=== PATIENT | female | born 1955 | race Caucasian/White ===

== ENCOUNTER 2019-02-01 07:29 | Emergency (ER) | payer BC ==
[2019-02-01] MEDS: Sodium Chloride 0.9% 1,000 ML IV ONE ×2 (07:45→08:30)
[2019-02-01] MEDS: Sodium Chloride 0.9% 10 ML Syringe FLUSH PRN (07:45)
[2019-02-01 08:15] LABS: ANION GAP 13.7 mmol/L (5-15); CHLORIDE,CL 106 mmol/L (98-115); SODIUM,NA 140 mmol/L (136-145)
--- NOTE | 2019-02-01 08:29 | EDM.PDOC ---
ED HPI GENERAL MEDICAL PROBLEM - General Chief Complaint: General Stated Complaint: FEELS LIKE SHE IS FAINTING/HEADACHE Time Seen by Provider: 02/01/19 07:45 Source of Information: Reports: Patient, Family (), Significant Other History Limitations: Reports: No Limitations - History of Present Illness INITIAL COMMENTS - FREE TEXT/NARRATIVE: Patient woke up this am at 0530 to go to the bathroom, once she sat up to walk, she became dizzy and felt like she was going to pass out, like the room was darkening, she was able to crawl to the bathroom to void. She notes going back to bed, and with movement of sitting up from lying flat caused her to have these near syncope like symptoms. She notes having a sudden "annoying" headache in her frontal region, no radiation, vague about describing it, but it is not her worse h/a she has ever, and was not associated with any focal neurological deficits. In addition, she notes working outside the past two days in the heat doing strenuous activities (planting trees) in the sun while not drinking enough water. 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: Other (see below) (drank water) Headache Pain Score (Numeric/FACES): 3 - Related Data Allergies Allergy/AdvReac Type Severity Reaction Status Date / Time erythromycin base Allergy Shortness Verified 02/01/19 07:37 [From [facility] of Breath latex Allergy Cannot Verified 02/01/19 07:37 Remember Sulfa (Sulfonamide Allergy Cannot Verified 02/01/19 07:37 Antibiotics) Remember Home Meds: Home Meds Non-Formulary Medication [NF Drug] 1 applic VAG ASDIRECTED 02/01/19 [History] Past Medical History - Past Surgical History Female Surgical History: Reports: Hysterectomy Social & Family History - Family History Neurological: Reports: Other (See Below) (father had stroke) - Tobacco Use Smoking Status *Q: Never Smoker - Recreational Drug Use Recreational Drug Use: No ED ROS GENERAL - Review of Systems Review Of Systems: See Below Constitutional: Reports: Malaise, Fatigue HEENT: Reports: No Symptoms Respiratory: Reports: No Symptoms Cardiovascular: Reports: Lightheadedness Endocrine: Reports: Fatigue GI/Abdominal: Reports: No Symptoms, Nausea, Other (not diarrhea, but has had some loose stools the past 2 days.) : Reports: No Symptoms Musculoskeletal: Reports: Leg Pain, Other (bilateral leg cramps intermitten) Skin: Reports: Wound (right lower leg abrasion with scab from outside soil and sharp metal edge one week ago. ) Neurological: Reports: Headache Psychiatric: Reports: Anxiety (hx of being anxious at times) Hematologic/Lymphatic: Reports: No Symptoms ED EXAM, GENERAL - Physical Exam Exam: See Below Exam Limited By: No Limitations General Appearance: Alert, No Apparent Distress Eye Exam: Bilateral Eye: Nystagmus (unilateral horizontal nystagmus that occurs when she changes position rapidly, resolves at rest, there is no vertical or rotatory nygstagmus ) Ears: Normal External Exam, Normal Canal, Hearing Grossly Normal, Normal TMs Ear Exam: Bilateral Ear: TM normal Nose: Normal Inspection, Normal Mucosa Throat/Mouth: Normal Inspection, Normal Lips, Normal Gums, Normal Oropharynx, Other (moist mucus membranes) Head: Atraumatic, Normocephalic Neck: Normal Inspection, Supple, Full Range of Motion Respiratory/Chest: No Respiratory Distress, Lungs Clear, Normal Breath Sounds, No Accessory Muscle Use Cardiovascular: Normal Peripheral Pulses, Regular Rate, Rhythm, No Edema, No Gallop, No JVD, No Murmur, No Rub Peripheral Pulses: 2+: Radial (L), Radial (R), Posterior Tibial (L), Posterior Tibial (R), Dorsalis Pedis (L), Dorsalis Pedis (R) GI/Abdominal: Normal Bowel Sounds, Soft, Non-Tender, No Distention (Female) Exam: Normal External Exam, Deferred Back Exam: Normal Inspection, Full Range of Motion Extremities: Normal Inspection, Normal Range of Motion, Non-Tender, No Pedal Edema, Normal Capillary Refill Neurological: Alert, Oriented, CN II-XII Intact, Normal Cognition, Normal Gait, Normal Reflexes, No Motor/Sensory Deficits, Other (rapid finger to nose motion and rapid repetiive motions in tact, no gait unsteady. ) Psychiatric: Normal Affect, Normal Mood Skin Exam: Warm, Dry, Intact Lymphatic: No Adenopathy EKG INTERPRETATION EKG Date: 02/01/19 Time: 08:05 Rhythm: NSR Rate (Beats/Min): 57 Porter: Normal P-Wave: Present QRS: Normal ST-T: Normal QT: Normal Course - Vital Signs Last Recorded V/S: Last Vital Signs Temp 97.6 F 02/01/19 07:52 Pulse 58 L 02/01/19 07:52 Resp 10 L 02/01/19 07:52 BP 136/50 L 02/01/19 11:40 Pulse Ox 96 02/01/19 07:52 Orthostatic Blood Pressure [ 141/53 Standing] Orthostatic Blood Pressure [ 142/76 Sitting] Orthostatic Blood Pressure [ 141/62 Supine] - Orders/Labs/Meds Labs: Laboratory Tests 02/01/19 02/01/19 02/01/19 Range/Units 07:40 07:45 07:45 WBC 7.50 (5.00-10.00) 10^3/uL RBC 4.54 (3.80-5.50) 10^6/uL Hgb 13.7 (12.0-16.0) g/dL Hct 40.4 (37.0-47.0) % MCV 89.0 (82.0-92.0) fL MCH 30.2 (27.0-31.0) pg MCHC 33.9 (32.0-36.0) g/dL RDW 13.5 (11.5-14.5) % Plt Count 258 (150-400) 10^3/uL MPV 9.3 (7.4-10.4) fL Immature Gran % (Auto) 0.3 (0.0-5.0) % Neut % (Auto) 56.3 (50.0-70.0) % Lymph % (Auto) 28.0 (20.0-40.0) % Centre % (Auto) 7.6 (2.0-8.0) % Eos % (Auto) 7.3 H (1.0-3.0) % Baso % (Auto) 0.5 (0.0-1.0) % Immature Gran # (Auto) 0.02 (0.00-0.50) 10^3/uL Neut # (Auto) 4.22 (2.50-7.00) 10^3/uL Lymph # (Auto) 2.10 (1.00-4.00) 10^3/uL Centre # (Auto) 0.57 (0.10-0.80) 10^3/uL Eos # (Auto) 0.55 H (0.10-0.30) 10^3/uL Baso # (Auto) 0.04 (0.00-0.10) 10^3/uL Sodium 140 (136-145) mmol/L Potassium 4.0 (3.3-5.3) mmol/L Chloride 106 (98-115) mmol/L Carbon Dioxide 24.3 (21.0-32.0) mmol/L Anion Gap 13.7 (5-15) mmol/L BUN 15 (6-25) mg/dL Creatinine 0.89 (0.51-1.17) mg/dL Est Cr Clr Drug Dosing 62.14 mL/min Estimated GFR (MDRD) > 60 mL/min Glucose 102 H (75 - 99) mg/dL Calcium 8.7 (8.7-10.3) mg/dL Creatine Kinase (26-276) U/L CK-MB (CK-2) (0.00-4.30) ng/mL Troponin I (0.00-0.070) ng/mL Ur Specific [place] <= 1.005 (1.005-1.030) 02/01/19 02/01/19 Range/Units 07:45 07:45 WBC (5.00-10.00) 10^3/uL RBC (3.80-5.50) 10^6/uL Hgb (12.0-16.0) g/dL Hct (37.0-47.0) % MCV (82.0-92.0) fL MCH (27.0-31.0) pg MCHC (32.0-36.0) g/dL RDW (11.5-14.5) % Plt Count (150-400) 10^3/uL MPV (7.4-10.4) fL Immature Gran % (Auto) (0.0-5.0) % Neut % (Auto) (50.0-70.0) % Lymph % (Auto) (20.0-40.0) % Centre % (Auto) (2.0-8.0) % Eos % (Auto) (1.0-3.0) % Baso % (Auto) (0.0-1.0) % Immature Gran # (Auto) (0.00-0.50) 10^3/uL Neut # (Auto) (2.50-7.00) 10^3/uL Lymph # (Auto) (1.00-4.00) 10^3/uL Centre # (Auto) (0.10-0.80) 10^3/uL Eos # (Auto) (0.10-0.30) 10^3/uL Baso # (Auto) (0.00-0.10) 10^3/uL Sodium (136-145) mmol/L Potassium (3.3-5.3) mmol/L Chloride (98-115) mmol/L Carbon Dioxide (21.0-32.0) mmol/L Anion Gap (5-15) mmol/L BUN (6-25) mg/dL Creatinine (0.51-1.17) mg/dL Est Cr Clr Drug Dosing mL/min Estimated GFR (MDRD) mL/min Glucose (75 - 99) mg/dL Calcium (8.7-10.3) mg/dL Creatine Kinase 176 (26-276) U/L CK-MB (CK-2) 1.20 (0.00-4.30) ng/mL Troponin I < 0.04 (0.00-0.070) ng/mL Ur Specific [place] (1.005-1.030) Meds: Medications Discontinued Medications Generic Name Dose Route Start Last Admin Trade Name Filiq PRN Reason Stop Dose Admin Diphtheria/Tetanus/Acell Pertussis 0.5 ml 02/01/19 09:12 02/01/19 09:20 Adacel IM 02/01/19 09:13 0.5 ml .ONCE ONE Administration Sodium Chloride 1,000 mls @ 999 mls/hr 02/01/19 07:38 02/01/19 07:45 Normal Saline IV 02/01/19 08:38 999 mls/hr .BOLUS ONE Administration Sodium Chloride 1,000 mls @ 999 mls/hr 02/01/19 08:27 02/01/19 08:30 Normal Saline IV 02/01/19 09:27 999 mls/hr .BOLUS ONE Administration Lorazepam 0.5 mg 02/01/19 08:59 02/01/19 09:13 Ativan PO 02/01/19 09:00 0.5 mg ONETIME ONE Administration Meclizine HCl 25 mg 02/01/19 11:27 02/01/19 11:28 Antivert PO 02/01/19 11:28 25 mg ONETIME ONE Administration Meclizine HCl Confirm 02/01/19 11:25 Antivert Administered 02/01/19 11:26 Dose 25 mg .ROUTE .STK-MED ONE Sodium Chloride 10 ml 02/01/19 07:38 02/01/19 07:45 Saline Flush FLUSH 10 ml Q8HR PRN Administration keep vein open - Radiology Interpretation Free Text/Narrative:: negative findings CT Results Date: 02/01/19 CT Results Time: 11:40 - Re-Assessments/Exams Free Text/Narrative Re-Assessment/Exam: 0945: two liters NS given, labs returned are normal, patient ambulated with stand by guidance with tele monitor to and voided large amount, not dizzy, no near syncope symptoms asymptomatic, still has a h/a in frontal region mild in pain, no neuro deficits, patient walked around the entire unit on tele monitor, no ectopy, patients states she just "feels out of it" and "foggy". Also, when the patient tried to call her to give him an update of her ED visit, she called her parents home number who both have been for over 3 years. I reviewed case in person with Dr. Huddleston. Will obtain CT scan head w/o. Vitals normal, orthostatics completed negative. 1020: Has been on continuos monitor, Sinus Bradycardia at 57-59 bpm w/o ectopy. She states she has some anxiousness at times, specially with tests and confined places, ativan 0.5 mg PO given. In addition, Tdap was given due to minor scab on her right lower leg from a soil contaminate sharp object a few days ago, no signs of cellulitis or any infection at this sight. It is has been over 10 years ago since last Tdap. the wound appears to be healing. 1116: waiting on CT scan report, patient is up in bed, making phone calls, asymptomatic, no near syncope symptoms at rest, she laid back down and turn her head side ways. 06/12/19 11:30 : I walked the patient around the unit again, asymptomatic, drank another 32 oz. of water from her bottle, voided again, patient bend all the way forward in a push up position and sat right up on her feet with absolute no symptoms of near syncope, dizziness, CP, patient insisted she do this method of reposition to ensure she doesn't have those same symptoms SALES MARKETING DIRECTOR, no ectopy on the monitor, CT scan labs neg, lytes normal, EKG normal, CK negative, Hct normal, Cr normal, UA Specific gravity was actually low not elevated, high sensitive trop negative, no fever, AxOx4, no neurological deficits. discharge vitals as documented which are normal. I suspect she had a mild case of heat exhaustion, needs to continue drinking PO fluids, REST, stay out of the sun. 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 She called while in the ED and was able to get in to see one of the family medicines providers in [place] where she has established care. was educated and both the patient and himself understand return precautions, they have our ED number and will call us if they have any questions or concerns. 02/01/19 17:48 Departure - Departure Time of Disposition: 11:44 (d/c with ) Disposition: Home, Self-Care 01 Condition: Good Clinical Impression: Near syncope Heat exhaustion Qualifiers: Encounter type: initial encounter Qualified Code(s): T67.5XXA - Heat exhaustion , unspecified, initial encounter - Discharge Information *PRESCRIPTION DRUG MONITORING PROGRAM REVIEWED*: Not Applicable *COPY OF PRESCRIPTION DRUG MONITORING REPORT IN PATIENT CHRISTIANO: Not Applicable Instructions: Near-Syncope, Heat Exhaustion Information Referrals: PCP,Not In Area [Primary Care Provider] - 1 Day (f/u with family medicine in [place] as you have care established there.) Forms: ED Department Discharge Additional Instructions: Do not drive bus until cleared by your follow up physician in [place] tomorrow. Return to ER if you have Chest pain, feel like you are going to pass out or do pass out, headache that is worse or changes,any new weakness, or any new or worsening symptoms that may concern you. the door is always open. MLP Sign Off - Signature Requirements MLP Sign Off: Yes - Problem List & Annotations (1) Heat exhaustion SNOMED Code(s): 67321262 Code(s): T67.5XXA - HEAT EXHAUSTION, UNSPECIFIED, INITIAL ENCOUNTER Status : Acute Qualifiers: Encounter type: initial encounter Qualified Code(s): T67.5XXA - Heat exhaustion, unspecified, initial encounter (2) Near syncope SNOMED Code(s): 271435086 Code(s): R55 - SYNCOPE AND COLLAPSE Status: Acute - Problem List Review Problem List Initiated/Reviewed/Updated: Yes
[2019-02-01] MEDS: LORazepam 0.5 MG Tab PO ONE (09:13)
[2019-02-01] MEDS: Diphtheria,Pertussis(Acell),Tetanus Vaccine 0.5 ML SDV IM ONE (09:20)
--- NOTE | 2019-02-01 10:57 | CT ---
[id number] CT/CT Head WO IV EXAM: CT Head WO IV CLINICAL DATA: HEADACHE, NEAR SYNCOPE SYMPTOMS. COMPARISON STUDY: None FINDINGS: No intracranial hemorrhage, extra-axial fluid collection, mass, or acute ischemia. No hydrocephalus. Paranasal sinuses and mastoid air cells are clear. IMPRESSION: Normal examination of the brain. Bakari Carmichael MD 02/01/19 1056 Thank you for allowing us to participate in the care of your patient.
[2019-02-01] MEDS ORDERED: Meclizine 25 MG Tab ONE (11:25)
[2019-02-01] MEDS: Meclizine 25 MG Tab PO ONE (11:28)
== END 2019-02-01 11:50 | disposition home or self-care (01) ==
LOC: KA.ED 07:29
DX: T67.5XXA Heat exhaustion, unspecified, initial encounter (principal); R55 Syncope and collapse; Z88.1 Allergy status to other antibiotic agents; Z88.2 Allergy status to sulfonamides; Z23 Encounter for immunization
CPT/HCPCS: 70450; 80048; 81003; 82550; 82553; 84484; 85025; 90471; 90715; 93005; 96360; 96361; 99284-25; A9270-GY; J7030